=== PATIENT | male | born 1960 | race African-American/Black ===

== ENCOUNTER 2024-06-30 13:01 | Inpatient (IN) | payer OTHER ==
[2024-06-30 14:03] VITALS: BMI 22.6
[2024-06-30] MEDS ORDERED: MAG HYDROX/AL HYDROX/SIMETH 30 ML UNIT-DOSE CUP PO PRN (14:14)
[2024-06-30] MEDS ORDERED: ONDANSETRON *ODT* 4 MG TABLET SL PRN (14:14)
[2024-06-30] MEDS ORDERED: guaiFENesin 600 MG TABLET.ER (FP) PO PRN (14:14)
[2024-06-30] MEDS ORDERED: METHOCARBAMOL 500 MG TABLET PO PRN (14:14)
[2024-06-30] MEDS ORDERED: BENZONATATE 200 MG CAPSULE PO PRN (14:14)
[2024-06-30] MEDS ORDERED: NICOTINE POLACRILEX 2 MG GUM BUC PRN (14:14)
[2024-06-30] MEDS ORDERED: ACETAMINOPHEN 325 MG TABLET (FP) PO PRN (14:14)
[2024-06-30] MEDS ORDERED: IBUPROFEN 600 MG TABLET (FP) PO PRN (14:14)
[2024-06-30] MEDS ORDERED: IBUPROFEN 400 MG TABLET (FP) PO PRN (14:14)
[2024-06-30] MEDS ORDERED: MAGNESIUM HYDROX 2400MG/30ML ORAL SUSPENSION 30 ML CUP PO PRN (14:14)
[2024-06-30] MEDS ORDERED: DICYCLOMINE HCL 10 MG CAPSULE PO PRN (14:14)
[2024-06-30] MEDS ORDERED: POLYETHYLENE GLYCOL (HEALTHYLAX) 3350 17 GM PACKET PO PRN (14:14)
[2024-06-30] MEDS ORDERED: NALOXONE (NARCAN) HCL 4 MG/0.1 ML SPRAY NS PRN (14:14)
[2024-06-30] MEDS ORDERED: BENZOCAINE/MENTHOL (CHLORASEPTIC ) LOZENGE MM PRN (14:14)
[2024-06-30] MEDS ORDERED: BISMUTH SUBSALICYLATE 262 MG/15 ML BTL PO PRN (14:14)
[2024-06-30] MEDS ORDERED: LOPERAMIDE HCL 2 MG CAPSULE PO PRN (14:14)
[2024-06-30] MEDS ORDERED: NALTREXONE HCL 50 MG TABLET PO ONE (15:00)
[2024-06-30] MEDS ORDERED: HYDROCHLOROTHIAZIDE 25 MG TABLET (FP) PO ONE (15:59)
[2024-06-30] MEDS: NALTREXONE HCL 50 MG TABLET PO ONE (18:01)
[2024-06-30] MEDS: HYDROCHLOROTHIAZIDE 25 MG TABLET (FP) PO ONE (18:01)
[2024-06-30] MEDS: LISINOPRIL 10 MG TABLET PO SCH (18:13)
[2024-06-30] MEDS: NIFEdipine E.R. 90 MG TABLET PO SCH (18:13)
[2024-06-30] MEDS: THIAMINE 100 MG TABLET PO SCH (23:03)
[2024-06-30] MEDS: levETIRAcetam 500 MG TABLET (FP) PO SCH (23:03)
[2024-06-30] MEDS: MELATONIN 5 MG TABLETS PO SCH (23:04)
[2024-07-01] MEDS: LISINOPRIL 20 MG TABLET PO SCH (09:41)
[2024-07-01] MEDS: NICOTINE 21 MG/24 HOURS TOPICAL PATCH TD SCH (09:41)
[2024-07-01] MEDS: PRENATAL VITAMINS W/ FOLIC ACID TABLET (FP) PO SCH (09:41)
[2024-07-01] MEDS: HYDROCHLOROTHIAZIDE 25 MG TABLET (FP) PO SCH (09:41)
[2024-07-01] MEDS: NALTREXONE HCL 50 MG TABLET PO SCH (09:43)
[2024-07-01] MEDS: NIFEdipine E.R. 90 MG TABLET PO SCH (09:43)
[2024-07-01] MEDS ORDERED: NIFEdipine E.R. 90 MG TABLET PO SCH (10:00)
[2024-07-01] MEDS ORDERED: HYDROCHLOROTHIAZIDE 25 MG TABLET (FP) PO SCH (10:00)
[2024-07-01] MEDS ORDERED: PATIENT'S OWN MEDICATION (NON-FORMULARY) (Lisinopril/Hydrochlorothiazide [Lisinopril-Hctz PO SCH (10:00)
[2024-07-01] MEDS ORDERED: LISINOPRIL 20 MG TABLET PO SCH (10:00)
[2024-07-01 15:25] LABS: HEMATOCRIT 41.1 % (35.4-49); HEMOGLOBIN 13.3 GM/dL (11.7-16.9); MCH 29.7 pg (25.7-33.7); MCHC 32.5 g/dl (32.0-35.9); MEAN CELL VOLUME 91.4 fl (80-96); MEAN PLT VOLUME 7.7 fl (7.5-11.1); PLATELET COUNT 268 10^3/uL (134-434); RBC 4.49 M/mm3 (4.00-5.60); RDW 15.4 % (11.9-15.9); WHITE BLOOD COUNT 5.7 K/mm3 (4.0-10.0)
[2024-07-01 15:28] LABS: CHLORIDE 104 mmol/L (98-107); SODIUM 139 mmol/L (136-145)
[2024-07-01 15:32] LABS: ALBUMIN 3.7 g/dl (3.4-5.0); ANION GAP 7 mmol/L (4-13); BLOOD UREA NITROGEN 20.9 mg/dL (7-18); CALCIUM 9.6 mg/dL (8.5-10.1); CO2 28 mmol/L (21-32); GLUCOSE,RANDOM 135 mg/dL (74-106)
[2024-07-01 15:35] LABS: SGOT/AST 23 U/L (15-37); SGPT/ALT 22 U/L (13-61)
[2024-07-01 15:37] LABS: BILIRUBIN,TOTAL 0.8 mg/dL (0.2-1); TOT PROT 6.8 g/dl (6.4-8.2)
[2024-07-01 15:44] LABS: ALK PHOS 59 U/L (45-117)
[2024-07-01 19:00] LABS: HIV INTERPRETATION NEGATIVE (NEGATIVE)
[2024-07-01] MEDS: hydrOXYzine PAMOATE 25 MG CAPSULE (FP) PO PRN (22:29)
[2024-07-02 07:09] VITALS: RESP 16
[2024-07-02 08:43] VITALS: BP 144/84; PULSE 62; TEMP 98
== END 2024-07-02 11:15 | disposition home or self-care (01) | DRG 897 ==
LOC: YASAS 13:01 → Y6N 15:37
PROVIDERS: ADMIT Allergy & Immunology; ATTEND Allergy & Immunology
PROC: HZ2ZZZZ Detoxification Services for Substance Abuse Treatment (ICD-10-PCS; principal; 2024-06-30)
DX: F10.230 Alcohol dependence with withdrawal, uncomplicated (principal); F14.20 Cocaine dependence, uncomplicated; F19.282 Other psychoactive substance dependence with psychoactive substance-induced sleep disorder; F12.20 Cannabis dependence, uncomplicated; F17.210 Nicotine dependence, cigarettes, uncomplicated; F32.9 Major depressive disorder, single episode, unspecified; I10 Essential (primary) hypertension; R73.03 Prediabetes
CPT/HCPCS: 36415; 80053; 80305; 80307; 83036; 85027; 86780; 86803; 87389; 93005; 93010